=== PATIENT | male | born 1985 | race Caucasian/White ===

== ENCOUNTER 2018-08-21 10:18 | Emergency (ER) | payer MEDICAID ==
[2018-08-21 10:40] VITALS: BMI 28.5
--- NOTE | 2018-08-21 11:12 | ED PDOC ---
HPI: Skin/Bite Injury Chief Complaint (Provider): Bleeding, left side of face History Per: Patient History/Exam Limitations: no limitations Onset/Duration Of Symptoms: Days Current Symptoms Are (Timing): Still Present Severity: None Additional Complaint(s): 32 yo male with no medical problems presents with skin tag on the left side of the face which was bleeding this morning. Pt states he does not know what happened. Pt states he cleaned it off and it stopped bleeding. No pain. Pt states he has had it for awhile and he thinks it has gotten bigger. <Ana Paula Galdamez - Last Filed: 08/21/18 11:07> <Anjelica Fulton - Last Filed: 08/22/18 15:39> Time Seen by Provider: 08/21/18 10:37 Chief Complaint (Nursing): Abnormal Skin Integrity Supervising Attending Note - Attestation: I have personally seen and examined this patient.: No I have reviewed all pertinent clinical information, including history, physical exam and plan: Yes <Anjelica Fulton - Last Filed: 08/22/18 15:39> Past Medical History Reviewed: Historical Data, Nursing Documentation, Vital Signs Vital Signs: Last Vital Signs Temp 97 F L 08/21/18 10:39 Pulse 78 08/21/18 10:39 Resp 18 08/21/18 10:39 BP 124/75 08/21/18 10:39 Pulse Ox 97 08/21/18 10:39 - Medical History PMH: No Chronic Diseases - Surgical History Surgical History: No Surg Hx - Family History Family History: States: No Known Family Hx - Living Arrangements Living Arrangements: With Family - Social History Current smoker - smoking cessation education provided: No <Ana Paula Galdamez - Last Filed: 08/21/18 11:07> Vital Signs: Last Vital Signs Temp 98 F 08/21/18 11:30 Pulse 76 08/21/18 11:30 Resp 19 08/21/18 11:30 BP 119/70 08/21/18 11:30 Pulse Ox 100 08/21/18 11:30 <Anjelica Fulton - Last Filed: 08/22/18 15:39> - Allergies Allergies/Adverse Reactions: Allergies Allergy/AdvReac Type Severity Reaction Status Date / Time No Known Allergies Allergy Verified 08/21/18 10:54 Review of Systems ROS Statement: Except As Marked, All Systems Reviewed And Found Negative Constitutional: Negative for: Fever, Chills Gastrointestinal: Negative for: Nausea, Vomiting Skin: Positive for: Other <FitooraAna Paula Vega - Last Filed: 08/21/18 11:07> Physical Exam - Reviewed Nursing Documentation Reviewed: Yes Vital Signs Reviewed: Yes - Physical Exam Appears: Positive for: Well, Non-toxic, No Acute Distress Head Exam: Positive for: ATRAUMATIC, NORMAL INSPECTION, NORMOCEPHALIC Skin: Positive for: Warm. Negative for: Normal Color ((+) flesh colored skin tag on the left cheek, no bleeding ) Eye Exam: Positive for: Normal appearance. Negative for: EOMI, PERRL ENT: Positive for: Normal ENT Inspection Neck: Positive for: Normal Respiratory: Negative for: Accessory Muscle Use, Respiratory Distress Back: Positive for: Normal Inspection Extremity: Positive for: Normal ROM Neurologic/Psych: Positive for: Alert, Oriented, Gait <Ana Paula Galdamez - Last Filed: 08/21/18 11:07> - ECG O2 Sat by Pulse Oximetry: 97 <Ana Paula Galdamez - Last Filed: 08/21/18 11:07> Medical Decision Making Medical Decision Making: Discussed f/u with ice resurfacing machine operators for removal and further evaluation. <Ana Paula Galdamez - Last Filed: 08/21/18 11:07> Disposition - Disposition Disposition: Routine/Home Disposition Time: 11:15 <Ana Paula Galdamez - Last Filed: 08/21/18 11:07> <Anjelica Fulton F - Last Filed: 08/22/18 15:39> - Clinical Impression Clinical Impression: Skin tag - Disposition Referrals: Britney Carias MD [Staff Provider] - Condition: GOOD Instructions: Skin Tags ([employer]) Forms: [employer] (S[place]an)
[2018-08-21 12:20] VITALS: BP 119/70; PULSE 76; RESP 19; TEMP 98; O2SAT 100
== END 2018-08-21 11:35 | disposition home or self-care (01) ==
LOC: H.ER 10:18
DX: L91.8 Other hypertrophic disorders of the skin (principal)

== ENCOUNTER 2019-02-09 10:24 | Emergency (ER) | payer BC, MEDICAID ==
[2019-02-09 10:24] VITALS: BMI 28.5
[2019-02-09 11:01] VITALS: RESP 18; TEMP 97
--- NOTE | 2019-02-09 11:28 | ED PDOC ---
HPI: Back Time Seen by Provider: 02/09/19 10:51 Chief Complaint (Nursing): Back Pain Chief Complaint (Provider): Left Flank Pain History Per: Patient History/Exam Limitations: no limitations Onset/Duration Of Symptoms: Days (three) Current Symptoms Are (Timing): Better Quality Of Discomfort: "Pain" Severity: Mild (Pt presents to the ED complaining of three days new onset of left flank pain with nausea and one instance of vomiting; Pt denies dysuria, hematuria and) Previous Symptoms: None Exacerbating Factor(s): Movement (Pt presents to the ED complaining of left sided flank pain that is new onset several days ago. Pt indicates that he has had back problems inclding severla disk herniations in the past. 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 Pt denies urinary symptoms, numbness or radiative pain down the lower extremities, bladder or bowel control issues. ) Past Medical History Reviewed: Historical Data, Nursing Documentation, Vital Signs Vital Signs: Last Vital Signs Temp 97 F L 02/09/19 10:56 Pulse 89 02/09/19 10:56 Resp 18 02/09/19 10:56 BP 126/80 02/09/19 10:56 Pulse Ox 97 02/09/19 10:56 - Family History Family History: States: Unknown Family Hx - Home Medications Home Medications: Ambulatory Orders Medication Instructions Recorded Cyclobenzaprine [Flexeril] 10 mg PO TID #27 tab 02/09/19 Diclofenac Sodium 1 tab PO BID #20 tab 02/09/19 - Allergies Allergies/Adverse Reactions: Allergies Allergy/AdvReac Type Severity Reaction Status Date / Time No Known Allergies Allergy Verified 08/21/18 10:54 Review of Systems ROS Statement: Except As Marked, All Systems Reviewed And Found Negative Musculoskeletal: Positive for: Back Pain Physical Exam - Reviewed Nursing Documentation Reviewed: Yes Vital Signs Reviewed: Yes - Physical Exam Appears: Positive for: Well, Non-toxic, No Acute Distress. Negative for: Uncomfortable Head Exam: Positive for: ATRAUMATIC, NORMAL INSPECTION Skin: Positive for: Normal Color, Warm, Dry. Negative for: Diaphoresis, Pallor, Rash Eye Exam: Positive for: Normal appearance. Negative for: Periorbital swelling, Periorbital tenderness ENT: Positive for: Normal ENT Inspection Neck: Positive for: Normal, Painless ROM, Supple. Negative for: Decreased ROM Cardiovascular/Chest: Positive for: Regular Rate, Rhythm Respiratory: Positive for: Normal Breath Sounds Pulses-Carotid (L): 2+ Pulses-Carotid (R): 2+ Pulses-Radial (L): 2+ Pulses-Radial (R): 2+ Extremity: Positive for: Normal ROM. Negative for: Tenderness, Pedal Edema, Tanner f Tenderness, Deformity, Swelling - Laboratory Results Result Diagrams: 02/09/19 13:05 02/09/19 13:05 - ECG O2 Sat by Pulse Oximetry: 97 Medical Decision Making Medical Decision Making: I: R/O Renal Stones v UTI v MS Pain P: UA CBC CMP CT Abd Pel without contrast Clinical diagnostics are without significance CT ABDOMEN Date of service: 02/09/2019 PROCEDURE: CT Abdomen and Pelvis without intravenous contrast HISTORY: Back pain. Calculus disease suspected. COMPARISON: None. TECHNIQUE: Unenhanced. Neither IV nor oral contrast administered Radiation dose: Total exam DLP = 850.59 mGy-cm. This CT exam was performed using one or more of the following dose reduction techniques: Automated exposure control, adjustment of the mA and/or kV according to patient size, and/or use of iterative reconstruction technique. FINDINGS: LOWER THORAX: Unremarkable. LIVER: Hepatic steatosis. No focal masses. No intrahepatic bile duct dilatation or pe rihepatic ascites. GALLBLADDER AND BILE DUCTS: Unremarkable. PANCREAS: Unremarkable. No gross lesion or ductal dilatation. SPLEEN: Unremarkable. ADRENALS: Unremarkable. No mass. KIDNEYS AND URETERS: Unremarkable. No hydronephrosis. No solid mass. VASCULATURE: Unremarkable. No aortic aneurysm. No atherosclerotic calcification or mural plaque present. BOWEL: Unremarkable. No obstruction. No gross mural thickening. APPENDIX: Unremarkable. Normal appendix. PERITONEUM: Unremarkable. No free fluid. No free air. LYMPH NODES: Unremarkable. No enlarged lymph nodes. BLADDER: Mild bladder wall thickening which may reflect a less than distended urinary bladder. The findings can also be seen in diffuse cystitis. REPRODUCTIVE: Unremarkable. BONES: No acute fracture. OTHER FINDINGS: Small sinus tract, fissure emanating from the perineum posterior laterally on the right coursing along the path of the abduct or muscles and gluteal muscles without involvement. No intra-abdominal or pelvic extension detected. The etiology/acuity of this is uncertain. IMPRESSION: No evidence of renal calculus disease or obstructive uropathy. Mild bladder wall thickening. Under distended urinary bladder wall versus cystitis. Small sinus tract extends from the perineum to the posterior lateral aspect of the right lower extremity without drainable collection. Hepatic steatosis without focal abnormality. The patient was infomred of these abnormaliites, though they do not account for the pain profiled on his presentation The patient is stable for discharge Disposition - Clinical Impression Clinical Impression: Back pain, Fatty liver disease, nonalcoholic - Patient ED Disposition Is Patient to be Admitted: No Counseled Patient/Family Regarding: Diagnosis, Need For Followup, Rx Given - Disposition Disposition: Routine/Home Disposition Time: 14:32 Condition: STABLE Prescriptions: Cyclobenzaprine [Flexeril] 10 mg PO TID #27 tab Diclofenac Sodium 1 tab PO BID #20 tab Instructions: Low Back Pain in Adults, Nonalcoholic Steatohepatitis (CHA), Nonalcoholic Fatty Liver Disease (DC) Forms: [employer] (Sinhala)
[2019-02-09] MEDS ORDERED: Sodium Chloride 0.9% 1,000 ML IV ONE (11:52)
[2019-02-09 12:49] LABS: URINE BACTERIA RARE (<OCC); URINE BILIRUBIN NEGATIVE (NEGATIVE); URINE BLOOD NEGATIVE (NEGATIVE); URINE CLARITY CLEAR (Clear); URINE COLOR YELLOW (YELLOW); URINE GLUCOSE (UA) NEG (NEGATIVE); URINE LEUKOCYTE ESTERASE NEG Leu/uL (Negative); URINE PROTEIN NEGATIVE (NEGATIVE); URINE UROBILINOGEN 0.2-1.0 mg/dL (0.2-1.0)
--- NOTE | 2019-02-09 12:59 | CT ---
Date of service: 02/09/2019 PROCEDURE: CT Abdomen and Pelvis without intravenous contrast HISTORY: Back pain. Calculus disease suspected. COMPARISON: None. TECHNIQUE: Unenhanced. Neither IV nor oral contrast administered Radiation dose: Total exam DLP = 850.59 mGy-cm. This CT exam was performed using one or more of the following dose reduction techniques: Automated exposure control, adjustment of the mA and/or kV according to patient size, and/or use of iterative reconstruction technique. FINDINGS: LOWER THORAX: Unremarkable. LIVER: Hepatic steatosis. No focal masses. No intrahepatic bile duct dilatation or perihepatic ascites. GALLBLADDER AND BILE DUCTS: Unremarkable. PANCREAS: Unremarkable. No gross lesion or ductal dilatation. SPLEEN: Unremarkable. ADRENALS: Unremarkable. No mass. KIDNEYS AND URETERS: Unremarkable. No hydronephrosis. No solid mass. VASCULATURE: Unremarkable. No aortic aneurysm. No atherosclerotic calcification or mural plaque present. BOWEL: Unremarkable. No obstruction. No gross mural thickening. APPENDIX: Unremarkable. Normal appendix. PERITONEUM: Unremarkable. No free fluid. No free air. LYMPH NODES: Unremarkable. No enlarged lymph nodes. BLADDER: Mild bladder wall thickening which may reflect a less than distended urinary bladder. The findings can also be seen in diffuse cystitis. REPRODUCTIVE: Unremarkable. BONES: No acute fracture. OTHER FINDINGS: Small sinus tract, fissure emanating from the perineum posterior laterally on the right coursing along the path of the abduct or muscles and gluteal muscles without involvement. No intra-abdominal or pelvic extension detected. The etiology/acuity of this is uncertain. IMPRESSION: No evidence of renal calculus disease or obstructive uropathy. Mild bladder wall thickening. Under distended urinary bladder wall versus cystitis. Small sinus tract extends from the perineum to the posterior lateral aspect of the right lower extremity without drainable collection. Hepatic steatosis without focal abnormality.
[2019-02-09 13:27] LABS: BASO % 0.4 % (0.0-2.0); EOS # 0.2 K/uL (0.0-0.7); HEMOGLOBIN 16.8 g/dL (12.0-18.0); LYMPH # 1.9 K/uL (1.0-4.3); LYMPH % 25.8 % (20.0-40.0); MEAN CELL VOLUME 91.1 fl (80.0-94.0); MEAN CORPUSCULAR HEMOGLOBIN 30.7 pg (27.0-31.0); MEAN CORPUSCULAR HGB CONC 33.7 g/dL (33.0-37.0); MONO # 0.6 K/uL (0.0-0.8); MONO % 7.7 % (0.0-10.0); NEUT # 4.6 K/uL (1.8-7.0); NEUT % 63.1 % (50.0-75.0); NRBC % 0.1 % (0.0-0.0); RBC 5.48 Mil/uL (4.40-5.90); RED CELL DISTRIBUTION WIDTH 13.2 % (11.5-14.5); WHITE BLOOD COUNT 7.3 K/uL (4.8-10.8)
[2019-02-09 13:36] LABS: ALB/GLOB RATIO 1.3 (1.0-2.1); ALBUMIN 4.2 g/dL (3.5-5.0); ALT/SGPT 57 U/L (21-72); AST/SGOT 33 U/L (17-59); BLOOD UREA NITROGEN 13 mg/dl (9-20); CALCIUM 9.4 mg/dL (8.4-10.2); GFR NON-AFRICAN AMERICAN > 60; LIPASE 39 U/L (23-300)
[2019-02-09 16:56] VITALS: BP 122/82; PULSE 82; O2SAT 98
== END 2019-02-09 16:17 | disposition home or self-care (01) ==
LOC: H.ER 10:24
DX: M54.9 Dorsalgia, unspecified (principal); K76.0 Fatty (change of) liver, not elsewhere classified
CPT/HCPCS: 74176; 80053; 81003; 83690; 85025; 99284; J7030